=== PATIENT | male | born 1980 | race Caucasian/White ===

== ENCOUNTER 2017-09-07 21:09 | Emergency (ER) | payer MEDICAID, OTHER ==
[2017-09-07 22:48] VITALS: BP 112/70; PULSE 90; RESP 14; TEMP 98.1; O2SAT 97
--- NOTE | 2017-09-07 23:11 | C.PDOC ---
History Of Present Illness Pt is here requesting detox for heroin . Last use few hrs [employer]. Pt denies any other c/o Time Seen by Provider: 09/07/17 22:53 Chief Complaint (Nursing): Substance Abuse History Per: Patient History/Exam Limitations: no limitations Suicide/Self Injury Attempted (Context): None Past Medical History Vital Signs: Last Vital Signs Temp 98.1 F 09/07/17 22:44 Pulse 90 09/07/17 22:44 Resp 14 09/07/17 22:44 BP 112/70 09/07/17 22:44 Pulse Ox 97 09/07/17 23:11 - Medical History PMH: No Chronic Diseases Family History: States: Unknown Family Hx - Social History Hx Tobacco Use: Yes Hx Alcohol Use: No Hx Substance Use: Yes (Heroin) - Immunization History Hx Tetanus Toxoid Vaccination: No Hx Influenza Vaccination: No Hx Pneumococcal Vaccination: No Review Of Systems Constitutional: Negative for: Fever Cardiovascular: Negative for: Chest Pain Respiratory: Negative for: Shortness of Breath Gastrointestinal: Negative for: Vomiting, Abdominal Pain, Diarrhea Neurological: Negative for: Weakness Physical Exam - Physical Exam Appears: Well, Non-toxic, No Acute Distress Skin: Normal Color Head: Atraumatic Eye(s): bilateral: Normal Inspection Oral Mucosa: Moist Throat: Normal Cardiovascular: Rhythm Regular Respiratory: Normal Breath Sounds, No Wheezing Gastrointestinal/Abdominal: Normal Exam, Bowel Sounds, No Tenderness Extremity: Normal ROM Neurological/Psych: Oriented x3, Normal Speech, Normal Cognition Gait: Steady ED Course And Treatment O2 Sat by Pulse Oximetry: 97 Disposition - Disposition Referrals: [facility] [Outside] Disposition: HOME/ ROUTINE Disposition Time: 23:11 Condition: STABLE Additional Instructions: Please call [facility] at [phone] for detox beds avalaibility Return to ER if worse Instructions: Drug Abuse and Drug Addiction (DC) Forms: [employer] [place] ([place]) - Clinical Impression Clinical Impression: Drug dependence
== END 2017-09-07 23:35 | disposition home or self-care (01) ==
LOC: C.ER 21:09
DX: F11.20 Opioid dependence, uncomplicated (principal)